=== PATIENT | male | born 1960 | race Hispanic/Latino ===

== ENCOUNTER 2018-07-31 16:00 | Outpatient (RCR) | payer OTHER | END 2018-08-01 | LOC: PT 16:00 | PROVIDERS: ATTEND Specialist | DX: M17.11 Unilateral primary osteoarthritis, right knee (principal); M25.561 Pain in right knee; M62.81 Muscle weakness (generalized); R26.2 Difficulty in walking, not elsewhere classified ==

== ENCOUNTER 2018-08-12 16:00 | Outpatient (RCR) | payer OTHER | END 2018-08-31 | LOC: PT 16:00 | PROVIDERS: ATTEND Specialist | DX: M17.11 Unilateral primary osteoarthritis, right knee (principal); M25.561 Pain in right knee; M62.81 Muscle weakness (generalized); R26.2 Difficulty in walking, not elsewhere classified | CPT/HCPCS: 97139 ==

== ENCOUNTER 2019-07-31 11:00 | Outpatient (RCR) | payer OTHER | END 2019-08-02 | LOC: PT 11:00 | PROVIDERS: ATTEND Specialist | DX: M25.562 Pain in left knee (principal); R26.2 Difficulty in walking, not elsewhere classified; M62.81 Muscle weakness (generalized); M25.662 Stiffness of left knee, not elsewhere classified ==

== ENCOUNTER 2019-08-07 11:08 | Outpatient (RCR) | payer OTHER | END 2019-09-01 | LOC: PT 11:08 | PROVIDERS: ATTEND Specialist | DX: M25.562 Pain in left knee (principal); R26.2 Difficulty in walking, not elsewhere classified; M62.81 Muscle weakness (generalized); M25.662 Stiffness of left knee, not elsewhere classified ==

== ENCOUNTER 2019-10-30 09:00 | Outpatient (RCR) | payer OTHER ==
[~2019-10-30 09:00] MED LIST: LIPITOR10 MG PO; PIROXICAM20 MG PO; SERTRALINE HCL50 MG PO
== END 2019-11-02 ==
LOC: PT 09:00
PROVIDERS: ATTEND Specialist
DX: M25.562 Pain in left knee (principal); M25.662 Stiffness of left knee, not elsewhere classified; M25.462 Effusion, left knee; M62.81 Muscle weakness (generalized)

== ENCOUNTER 2019-11-26 07:00 | Outpatient (RCR) | payer OTHER | END 2019-12-02 | LOC: PT 07:00 | PROVIDERS: ATTEND Specialist | DX: M25.562 Pain in left knee (principal); M25.662 Stiffness of left knee, not elsewhere classified; M25.462 Effusion, left knee; M62.81 Muscle weakness (generalized) | CPT/HCPCS: 97139 ==

== ENCOUNTER 2019-12-30 08:59 | Outpatient (RCR) | payer OTHER | END 2020-01-02 | LOC: PT 08:59 | PROVIDERS: ATTEND Specialist | DX: M25.562 Pain in left knee (principal); M25.662 Stiffness of left knee, not elsewhere classified; M62.81 Muscle weakness (generalized) ==

== ENCOUNTER 2022-12-26 09:00 | Outpatient (RCR) | payer OTHER, MEDICARE | END 2023-01-01 | LOC: PT 09:00 | PROVIDERS: ATTEND Physician Assistant | DX: Z47.1 Aftercare following joint replacement surgery (principal); Z96.651 Presence of right artificial knee joint; M62.81 Muscle weakness (generalized) ==